=== PATIENT | male | born 1975 | race Caucasian/White ===

== ENCOUNTER 2017-10-19 23:23 | Emergency (ER) | payer OTHER ==
[2017-10-19] MEDS ORDERED: Diltiazem 25 MG/5 ML SDV IVPUSH ONE (23:50)
--- NOTE | 2017-10-20 01:48 | ER ---
HISTORY OF PRESENT ILLNESS: A 41-year-old male here with his with complaints of epigastric pain that seems to come and go. He has had it for a year and a half. It seems to be little worse the last 3 or 4 days. He has also had some problems with leg weakness and just not feeling right. He has not been having bowel movements as often as normal for the last couple of days either. The patient denies any problems with coughing, chest pain, shortness of breath or nausea or vomiting. He tells me he does have something going on with his abdomen. He is in the middle of a workup, currently seeing a GI specialist. They have not been able to find the cause of his epigastric pain. The patient states that since he started feeling worse, he is worried that it could be his heart. The patient has no history of coronary artery disease. He does have history of kidney stones, but not recently. CURRENT MEDICATIONS: Include PPI and diclofenac. ALLERGIES: NONE. OBJECTIVE: GENERAL APPEARANCE: The patient is awake and alert, in no obvious distress. VITAL SIGNS: Reviewed. Blood pressure initially is in the 150/106 range. Pulse ranges between 115 to 125. HEENT: Ears; TMs are normal. Nares are patent. Oral mucous membranes are moist. Tonsils not enlarged or injected. Pharynx not inflamed. NECK: Supple. LUNGS: Clear. CARDIAC: Heart sounds distinct. S1, S2 present. Regular rate. No murmurs. ABDOMEN: Soft, protuberant. There is minor discomfort with palpation in the epigastric area midline. No guarding. Bowel sounds are present. SKIN: Warm and dry. LABS AND X-RAY: EKG is obtained showing a sinus tachycardia, otherwise normal sinus rhythm. Chest x-ray shows some subtle changes just lateral to the left heart border that could be some coughing. I am not sure we will wait for the radiologist report on this. Lab work includes a CBC, comprehensive metabolic panel, troponin, amylase, and lipase. Test results are all unremarkable. The patient's potassium is 3.4 just slightly below normal range. The patient was given Cardizem 20 mg IV which did bring his pulse down into the 90 range and his blood pressure came down to normal. Followup readings on his blood pressure ranged from 115 over upper 70s to 132/86. DIAGNOSES: 1. Tachycardia, resolved in the ER. 2. Epigastric pain, chronic in nature. 3. Viral illness. TREATMENT PLAN: I advised the patient to give this a few more days. As long as his symptoms do not get worse, he is to rest, push fluids and use [id number] medications as needed. If he starts feeling constipated, he can use Mag citrate 1 pint p.o., and he can repeat that the next day x1 if needed. I do feel that patient needs to follow up soon in the clinic and get an annual physical. The patient agrees to this treatment plan and has no further questions. CATHY/MODL /[id number]
--- NOTE | 2017-10-20 10:09 | CR ---
AP PORTABLE CHEST, 10/20/17 No priors. The heart size is normal. There is mild eventration of the right hemidiaphragm. The lungs are clear. No pneumothorax. No pleural effusions. No areas of consolidation. [id number] MTDD
== END 2017-10-20 00:58 | disposition home or self-care (01) ==
LOC: LB.ED 23:23
DX: R10.13 Epigastric pain (principal); R00.0 Tachycardia, unspecified; B34.9 Viral infection, unspecified
CPT/HCPCS: 36415; 71045; 80053; 82150; 83690; 84484; 85025; 96374; 99285; J3490; 93005

== ENCOUNTER 2020-09-17 13:46 | Emergency (ER) | payer OTHER ==
[2020-09-17] MEDS ORDERED: Sodium Chloride 0.9% 1,000 ML IV SCH (14:30)
--- NOTE | 2020-09-17 14:36 | EDM.PDOC ---
ED HPI GENERAL MEDICAL PROBLEM - General Stated Complaint: FEELS FAINT Time Seen by Provider: 09/17/20 14:15 Source of Information: Reports: Patient History Limitations: Reports: No Limitations - History of Present Illness INITIAL COMMENTS - FREE TEXT/NARRATIVE: patient presented to the ER with a c/o dizziness and presyncope. Reports it occurred yesterday while at rest. Described the event as sudden onset of tunnel vision, mild headache and feeling like passing out. No syncope. symptoms lasted for 10 seconds at worst. No numbness or tingling and no weakness but reports feeling '' generalized heavi ness '' in arms and in his body. No vision problems at this time.no speech problems or incontinence. Patient reports similar incidence about 5-6x over the last 2 years. Had underwent angiogram, ECHO cardiogram and nuclear stress test - all were WNL. Was also recommended to get an US of carotids and imaging of his brain - but he didn't do those. Denies taking any meds except occasional vitamins and ASA 81mg. h/o obesity and abnormal lipids profile. Onset: Sudden Duration: Day(s): (1) - Related Data Allergies Allergy/AdvReac Type Severity Reaction Status Date / Time No Known Allergies Allergy Verified 10/20/17 00:06 Home Meds: Home Meds LORazepam [Lorazepam] 1 mg PO DAILY PRN 09/17/20 [History] Past Medical History Gastrointestinal History: Reports: Other (See Below) Other Gastrointestinal History: c/o abd pain for last year and a half with frequent constipation - Past Surgical History GI Surgical History: Reports: Cholecystectomy ED ROS GENERAL - Review of Systems Review Of Systems: Comprehensive ROS is negative, except as noted in HPI. Constitutional: Reports: No Symptoms HEENT: Reports: No Symptoms Respiratory: Reports: No Symptoms Cardiovascular: Reports: Lightheadedness, Palpitations Endocrine: Reports: No Symptoms GI/Abdominal: Reports: No Symptoms Musculoskeletal: Reports: No Symptoms Skin: Reports: No Symptoms Neurological: Reports: Dizziness, Headache. Denies: Trouble Speaking, Difficulty Walking Psychiatric: Reports: No Symptoms Hematologic/Lymphatic: Reports: No Symptoms ED EXAM, DIZZINESS - Physical Exam Exam: See Below Exam Limited By: No Limitations General Appearance: Alert, WD/WN, No Apparent Distress Eye Exam: Bilateral Eye: PERRL Throat/Mouth: Normal Inspection Head Exam: Atraumatic, Normocephalic Respiratory/Chest: No Respiratory Distress, Lungs Clear, Normal Breath Sounds Cardiovascular: Normal Peripheral Pulses, Regular Rate, Rhythm, No Edema GI/Abdominal: Normal Bowel Sounds, Soft Neurological: Alert, Normal Mood/Affect, Normal Dorsiflexion, Normal Gait, No Motor/Sensory Deficits, Oriented x 3 Back Exam: Normal Inspection, Full Range of Motion Extremities: Normal Inspection, Normal Range of Motion, Non-Tender, No Pedal Edema Psychiatric: Normal Affect, Normal Mood #1 Interpretation Rhythm: NSR [place]: Normal P-Wave: Present QRS: Normal ST-T: Normal QT: Normal Course - Vital Signs Last Recorded V/S: Last Vital Signs Temp 37.6 C 09/17/20 15:04 Pulse 112 H 09/17/20 15:04 Resp 16 09/17/20 15:04 BP 168/107 H 09/17/20 15:04 Pulse Ox 93 L 09/17/20 15:04 Orthostatic Blood Pressure [ 151/101 Standing] Orthostatic Blood Pressure [ 158/95 Supine] - Orders/Labs/Meds Orders: Active Orders 24 hr Category Date Time Status EKG Documentation Completion [RC] ASDIRECTED Care 09/17/20 14:11 Active Orthostatic Vital Signs [RC] ASDIRECTED Care 09/17/20 14:12 Ordered Sodium Chloride 0.9% [Normal Saline] 1,000 ml Med 09/17/20 14:30 Ordered IV ASDIRECTED Medication Orders Sodium Chloride (Normal Saline) 1,000 mls @ 999 mls/hr IV ASDIRECTED KATIE Last Admin: 09/17/20 14:30 Dose: 999 mls/hr Documented by: KUSHAL Labs: Laboratory Tests 09/17/20 09/17/20 Range/Units 14:30 14:30 WBC 10.7 (4.0-11.0) K/uL RBC 5.81 (4.50-6.50) M/uL Hgb 16.6 (13.0-18.0) g/dL Hct 48.1 (40.0-54.0) % MCV 83 (76-96) fL MCH 28.6 (27.0-32.0) pg MCHC 34.5 (31.0-35.0) g/dL RDW 13.7 (11.0-16.0) % Plt Count 389 D (150-400) K/uL MPV 8.9 (6.0-10.0) fL Neut % (Auto) 70.1 H (45.0-70.0) % Lymph % (Auto) 22.4 (20.0-40.0) % [place] % (Auto) 6.1 (3.0-10.0) % Eos % (Auto) 0.9 L (1.0-5.0) % Baso % (Auto) 0.5 (0.0-0.5) % Neut # (Auto) 7.50 (2.00-7.50) K/uL Lymph # (Auto) 2.39 (1.50-4.00) K/uL [place] # (Auto) 0.65 (0.20-0.80) K/uL Eos # (Auto) 0.10 (0.04-0.40) K/uL Baso # (Auto) 0.05 (0.02-0.10) K/uL Sodium 140 (136-145) mmol/L Potassium 3.7 (3.5-5.1) mmol/L Chloride 101 (98-107) mmol/L Carbon Dioxide 29.5 (21.0-32.0) mmol/L Anion Gap 13.2 (5.0-15.0) mmol/L BUN 10 (8-26) mg/dL Creatinine 0.98 (0.70-1.30) mg/dL Est Cr Clr Drug Dosing TNP Estimated GFR (MDRD) > 60 (>60) MLS/MIN BUN/Creatinine Ratio 10.2 (6-25) Glucose 153 H (74-100) mg/dL Calcium 9.0 (8.5-10.1) mg/dL Phosphorus 3.3 (2.5-4.9) mg/dL Magnesium 2.0 (1.8-2.4) mg/dL Troponin I < 0.017 (0.000-0.060) ng/mL Meds: Medications Generic Name Dose Route Start Last Admin Trade Name Freq PRN Reason Stop Dose Admin Sodium Chloride 1,000 mls @ 999 mls/hr 09/17/20 14:30 09/17/20 14:30 Normal Saline IV 999 mls/hr ASDIRECTED KATIE Administration Discontinued Medications Generic Name Dose Route Start Last Admin Trade Name Freq PRN Reason Stop Dose Admin Atorvastatin Calcium Confirm 09/17/20 15:39 Lipitor Administered 09/17/20 15:40 Dose 40 mg .ROUTE .STK-MED ONE - Re-Assessments/Exams Free Text/Narrative Re-Assessment/Exam: 09/17/20 15:44 patient was connected to a monitor EKG NSR labs - normal trop, normal CBC and BMP. vitals were significant for Hypertension - but patient reports that he usually gets white coat syndrome and his BP goes up when in a hospital, but his BP at home usually run 120-130/80-90. IVF was given CT head wo contrast - no e/o stroke unable to perform CTA neck while in the ER. discussed with the patient that he needs US carotids to rule out carotids stenosis as a reason for his symptoms. Unfortunately, US isn't available at this local facility until mid next week. Contacted [facility] for US - will be available tomorrow between 10am - 2pm. patient was informed and given this option. Will start him on lisinopril and atorvastatin 09/17/20 15:54 Departure - Departure Time of Disposition: 15:42 Disposition: Home, Self-Care 01 Condition: Good Clinical Impression: Dyslipidemia, Obesity, Hypertension - Discharge Information *PRESCRIPTION DRUG MONITORING PROGRAM REVIEWED*: Not Applicable *COPY OF PRESCRIPTION DRUG MONITORING REPORT IN PATIENT MICAH: Not Applicable Referrals: PCP,None [Primary Care Provider] - Forms: ED Department Discharge Additional Instructions: - take aspirin 81mg PO daily basis - start taking cholesterol medication once daily - establish a primary care provider next week -recommend to discuss ultra-sound of carotids - recommend to follow a diet to help with weight reduction Sepsis Event Note (ED) - Focused Exam Vital Signs: Vital Signs Temp Pulse Resp BP Pulse Ox 09/17/20 15:04 37.6 C 112 H 16 168/107 H 93 L - Problem List & Annotations (1) Dyslipidemia SNOMED Code(s): 737213856 Code(s): E78.5 - HYPERLIPIDEMIA, UNSPECIFIED Status: Chronic Priority: Low Current Visit: Yes (2) Hypertension SNOMED Code(s): 16804367 Code(s): I10 - ESSENTIAL (PRIMARY) HYPERTENSION Status: Suspected Current Visit: Yes Qualifiers: Hypertension type: unspecified Qualified Code(s): I10 - Essential (primary) hypertension (3) Obesity SNOMED Code(s): 966565992, 092504400 Code(s): E66.9 - OBESITY, UNSPECIFIED Status: Chronic Priority: Low Current Visit: Yes Qualifiers: Obesity type: due to excess calories Obesity classification: adult class 2 (BMI 35 - 39.9) Serious obesity comorbidity presence: without serious comorbidity Body mass index: BMI 37.0-37.9 Qualified Code(s): E66.09 - Other obesity due to excess calories; Z68.37 - Body mass index [BMI] 37.0-37.9, adult (4) Dizziness SNOMED Code(s): 016745884, 613750468 Code(s): R42 - DIZZINESS AND GIDDINESS Status: Acute Current Visit: Yes - My Orders Last 24 Hours: My Active Orders 09/17/20 14:11 EKG Documentation Completion [RC] ASDIRECTED 09/17/20 14:12 Orthostatic Vital Signs [RC] ASDIRECTED 09/17/20 14:30 Sodium Chloride 0.9% [Normal Saline] 1,000 ml IV ASDIRECTED - Assessment/Plan Last 24 Hours: My Active Orders 09/17/20 14:11 EKG Documentation Completion [RC] ASDIRECTED 09/17/20 14:12 Orthostatic Vital Signs [RC] ASDIRECTED 09/17/20 14:30 Sodium Chloride 0.9% [Normal Saline] 1,000 ml IV ASDIRECTED
--- NOTE | 2020-09-17 15:24 | CT ---
DATE OF SERVICE: 09/17/2020 CLINICAL DATA: Dizziness Unenhanced brain CT: Multi slice acquisition through the brain without IV contrast was performed. No priors. No masses or mass effect. No intracranial hemorrhage. No evidence of acute or subacute infarct. No osseous abnormalities. Impression: No acute intracranial abnormalities. MTDD
[2020-09-17] MEDS ORDERED: atorvaSTATin 10 MG Tab ONE ×2 (15:39→16:00)
[2020-09-17] MEDS ORDERED: Lisinopril 2.5 MG Tab ONE ×2 (15:56→16:00)
== END 2020-09-17 16:45 | disposition home or self-care (01) ==
LOC: LB.ED 13:46
DX: I10 Essential (primary) hypertension (principal); E78.5 Hyperlipidemia, unspecified; E66.9 Obesity, unspecified; Z68.1 Body mass index [BMI] 19.9 or less, adult
CPT/HCPCS: 36415; 70450; 80048; 83735; 84100; 84484; 85025; 93005; 99284-25; A9270-GY; J7030